=== PATIENT | male | born 2000 | race African-American/Black ===

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

== ENCOUNTER 2021-08-16 22:20 | Emergency (ER) | payer SELFPAY ==
[~2021-08-16] VITALS: Ht 177.8 cm; Wt 70.5 kg
[2021-08-16 23:27] VITALS: BP 138/102
--- NOTE | 2021-08-16 23:41 | PHYS DOC ---
Past Medical History Past Medical History: No Pertinent History Past Surgical History: No Surgical History Smoking Status: Current Every Day Smoker Alcohol Use: Rarely Drug Use: None General Adult EDM: Chief Complaint: BACK PAIN - NO INJURY HPI: HPI: Patient is a 21 year old male who presents with mid thoracic back pain, worse on the left than the right. Symptoms have been present for over 1 week. Pain is worse with movement and position. He denies abdominal pain, chest pain, dyspnea. He denies any direct trauma or injury. No radiation of pain. No numbness or tingling or motor weakness. He does report some urinary urgency. He denies penile discharge or dysuria. He denies scrotal pain, redness or swelling. He does have unprotected sex, has recently had a new sexual partner. He took one dose of ibuprofen a few days ago, he has not taken anything else for the pain since that time. No acute changes in any of his symptoms today, but his father recommended he come to the ER to be seen. Review of Systems: Review of Systems: Constitutional: Denies fever or chills. [] HENT: Denies nasal congestion or sore throat. [] Respiratory: Denies cough or shortness of breath. [] Cardiovascular: Denies chest pain or edema. [] GI: Denies abdominal pain, nausea, vomiting : Denies dysuria. He denies scrotal or testicle pain or redness. He denies penile discharge. He does report some mild urinary urgency. Denies gross hematuria Musculoskeletal: Left thoracic back pain. No joint pain or swelling. Integument: Denies rash. [] Neurologic: Denies headache, focal weakness or sensory changes. [] Psychiatric: Denies depression or anxiety. [] Heart Score: C/O Chest Pain: No Risk Factors: Risk Factors: DM, Current or recent (<one month) smoker, HTN, HLP, family history of CAD, obesity. Risk Scores: Score 0 - 3: 2.5% MACE over next 6 weeks - Discharge Home Score 4 - 6: 20.3% MACE over next 6 weeks - Admit for Clinical Observation Score 7 - 10: 72.7% MACE over next 6 weeks - Early Invasive Strategies Allergies: Allergies: Allergies Coded Allergies Type Severity Reaction Last Updated Verified No Known Drug Allergies 08/16/21 No Physical Exam: PE: Constitutional: Well developed, well nourished, no acute distress, non-toxic appearance. [] HENT: Normocephalic, atraumatic Neck: Normal range of motion, no tenderness, trachea is midline Cardiovascular:Heart rate regular rhythm, no edema, warm and well perfused Lungs & Thorax: Bilateral breath sounds clear to auscultation [] Abdomen: Abdomen soft, nondistended, nontender to palpation, no palpable pulsatile mass, no mass organomegaly, no CVA tenderness Skin: Warm, dry, no erythema, no rash. [] Back: Mild left-sided soft tissue mid thoracic tenderness. No midline tenderness or step-offs. No deformity. Mild palpable spasm is noted. Pain appears to be reproduced with palpation and movement. Full range of motion. Extremities: No tenderness, no cyanosis, no clubbing, ROM intact, no edema. No calf tenderness. Neurologic: He is awake, alert, ambulatory with a steady gait, 5 out of 5 motor strength all four extremities, no foot drop, sensation is grossly intact, speech is clear and fluent, no facial asymmetry Psychologic: Affect is anxious, though he is cooperative [] Current Patient Data: Vital Signs: Vital Signs Date Time Temp Pulse Resp B/P (MAP) Pulse Ox O2 Delivery O2 Flow Rate FiO2 08/16/21 23:27 97.8 60 20 138/102 (114) 98 Room Air 97.8 EKG: EKG: [] Radiology/Procedures: Radiology/Procedures: IMAGING REPORT Signed PATIENT: ARUN MARTINEZOUNT: [id number] : 2000 LOCATION: ER AGE: 21 SEX: M EXAM STATUS: DEP ER ORD. PHYSICIAN: MOUNA GARCIA DO REASON: pain PROCEDURE: THORACIC SPINE 3V EXAM: XR THORACIC SPINE 3VIEWS. HISTORY: Back pain. COMPARISON: None. FINDINGS: Thoracic alignment is maintained. No fractures are identified. Intervertebral disc heights are maintained. IMPRESSION: 1. No fracture or malalignment. Electronically signed by: Sharmila Carson MD (08/17/2021 5:53 AM) [facility] DICTATED and SIGNED BY: JOSÉ MIGUEL CARSON MD DATE: 08/17/21 [id number] Course & Med Decision Making: Course & Med Decision Making HisPertinent Labs and Imaging studies reviewed. (See chart for details) I have discussed the findings, differential diagnosis and plan of care with the patient. His back pain does appear to be musculoskeletal. His urinalysis does manifest evidence of some mild pyuria without bacteria. No urinary symptoms, unprotected intercourse and new sexual partner I have recommended empiric treatment for urethritis. He is given IM Rocephin and p.o. azithromycin. He understands that gonorrhea and Chlamydia cultures are pending. I have ordered these, via urine testing. He is given resources to follow-up with a primary care physician. Return precautions are given. Dragon Disclaimer: Nutmeg Disclaimer: This electronic medical record was generated, in whole or in part, using a voice recognition dictation system. Departure Departure Impression: Primary Impression: Thoracic back pain Additional Impression: Pyuria Disposition: HOME / SELF CARE / HOMELESS Condition: STABLE Referrals: NO PCP (PCP) Patient Instructions: Back Pain, Adult, Urethritis, Adult Additional Instructions: You have been given antibiotics to empirically treat you for gonorrhea and chlamydia. Your cultures are pending, they should return in the next 2 to 3 days. You'll be notified of any positive or abnormal results. Your x-rays are normal. You most likely have a muscle spasm. Please use the muscle spasm med ication as needed/as directed. You may also alternate ice and heat. You may use [id number] ibuprofen and Tylenol as well. Return for acute injury or trauma, chest pain, shortness of breath, abdominal pain, vomiting or for any other concerns. Please do not have sex at all until your symptoms are gone, and you make sure that any partners are treated, if your cultures returned positive. Follow-up with your primary care physician. Scripts Cyclobenzaprine Hcl (CYCLOBENZAPRINE HCL) 10 Mg Tablet 1 TAB PO BID for muscle spasm, #14 TAB Prov: MOUNA GARCIA DO 08/17/21 MOUNA GARCIA DO Aug 16, 2021 23:41
[2021-08-17] MEDS ORDERED: IBUPROFEN 200 MG TABLET. PO ONE
[2021-08-17 01:09] LABS: BILIRUBIN,URINE NEGATIVE (NEG); CLARITY,URINE CLEAR; COLOR,URINE YELLOW; NITRITE,URINE NEGATIVE (NEG); PH,URINE 5.5 (<5.0-8.0); PROTEIN,URINE 30 mg/dL (NEG-TRACE); UROBILINOGEN,URINE 0.2 mg/dL (0.2 mg/dL)
[2021-08-17 01:18] LABS: BACTERIA,URINE 0 /HPF (0-FEW); RBC,URINE 0 /HPF (0-2)
[2021-08-17] MEDS ORDERED: CYCL10TA19 PO (01:56)
[2021-08-17] MEDS ORDERED: AZITHROMYCIN 250 MG TABLET. PO ONE (02:00)
[2021-08-17] MEDS ORDERED: cefTRIAXone IM 500 MG VIAL. IM ONE (02:00)
--- NOTE | 2021-08-17 05:56 | RAD ---
EXAM: XR THORACIC SPINE 3VIEWS. HISTORY: Back pain. COMPARISON: None. FINDINGS: Thoracic alignment is maintained. No fractures are identified. Intervertebral disc heights are maintained. IMPRESSION: 1. No fracture or malalignment. Electronically signed by: Sharmila Carson MD (08/17/2021 5:53 AM) [facility]
== END 2021-08-17 02:30 | disposition home or self-care (01) ==
LOC: ER 22:20
DX: M54.6 Pain in thoracic spine (principal); R82.81 Pyuria; F17.200 Nicotine dependence, unspecified, uncomplicated
CPT/HCPCS: 72072; 81001; 87086; 87491; 87591; 96372; 99284; J0696

== ENCOUNTER 2021-09-13 09:55 | Emergency (ER) | payer SELFPAY ==
[~2021-09-13] VITALS: Ht 175.3 cm; Wt 75.0 kg
[~2021-09-13 09:55] MED LIST: CYCL10TA19 PO
[2021-09-13 10:06] VITALS: BP 118/70
[2021-09-13 10:37] LABS: BASO % 1 % (0-3); EOS % 0 % (0-3); HEMATOCRIT 46.3 % (39.0-53.0); HEMOGLOBIN 15.6 g/dL (13.0-17.5); LYMPH # 1.1 x10^3/uL (1.0-4.8); LYMPH % 23 % (24-48); MEAN CORPUSCULAR HEMOGLOBIN 27 pg (25-35); MEAN CORPUSCULAR HGB CONC 34 g/dL (31-37); MEAN CORPUSCULAR VOLUME 81 fL (79-100); MONO # 0.5 x10^3/uL (0.0-1.1); MONO % 10 % (0-9); NEUT % 66 % (31-73); PLATELET COUNT 245 x10^3/uL (140-400); RED BLOOD COUNT 5.73 x10^6/uL (4.30-5.70); RED CELL DISTRIBUTION WIDTH 13.7 % (11.5-14.5); WHITE BLOOD COUNT 4.6 x10^3/uL (4.0-11.0)
[2021-09-13 10:39] LABS: BILIRUBIN,URINE NEGATIVE (NEG); CLARITY,URINE CLEAR; COLOR,URINE AMBER; NITRITE,URINE NEGATIVE (NEG); PROTEIN,URINE NEGATIVE (NEG-TRACE); UROBILINOGEN,URINE 0.2 mg/dL (0.2 mg/dL)
[2021-09-13 10:45] LABS: BACTERIA,URINE 0 /HPF (0-FEW); RBC,URINE 0 /HPF (0-2); WBC,URINE OCC /HPF (0-4)
[2021-09-13] MEDS ORDERED: KETOROLAC 15 MG/ML VIAL. IVP ONE (10:45)
--- NOTE | 2021-09-13 10:51 | PHYS DOC ---
Past Medical History Past Medical History: No Pertinent History Past Surgical History: No Surgical History Smoking Status: Current Every Day Smoker Alcohol Use: Rarely Drug Use: None General Adult EDM: Chief Complaint: SEXUALLY TRANSMITTED DISEASE HPI: HPI: Patient is a 21 year old who presents with left-sided flank pain. Patient was seen here a month ago for same complaints. Patient was treated prophylactically for STDs. Patient states that when he got home he vomited and was concerned th at he did not retain any of the medication that was given. Patient denies penile discharge or burning with urination. Denies abdominal pain. Denies anything making pain better or worse. No known injury. Afebrile. patient denies all other health history. Review of Systems: Review of Systems: ROS At least 10 ROS systems have been reviewed and are negative except as documented in the HPI. General: Negative except as outlined in HPI above. Skin: Negative except as outlined in HPI above. HEENT: Negative except as outlined in HPI above. Neck: Negative except as outlined in HPI above. Respiratory: Negative except as outlined in HPI above.. Cardiovascular: Negative except as outlined in HPI above. Abdomen: Negative except as outlined in HPI above. : Negative except as outlined in HPI above. Back/MSK: Negative except as outlined in HPI above. Neuro: Negative except as outlined in HPI above. Psych: Negative except as outlined in HPI above. Heart Score: C/O Chest Pain: No Risk Factors: Risk Factors: DM, Current or recent (<one month) smoker, HTN, HLP, family history of CAD, obesity. Risk Scores: Score 0 - 3: 2.5% MACE over next 6 weeks - Discharge Home Score 4 - 6: 20.3% MACE over next 6 weeks - Admit for Clinical Observation Score 7 - 10: 72.7% MACE over next 6 weeks - Early Invasive Strategies Current Medications: Current Medications Medications (Trade) Dose Ordered Sig/[place] Start Time Stop Time Status Last Admin Dose Admin Ketorolac Tromethamine (Toradol 15mg Vial) 15 mg 1X ONCE 09/13/21 10:45 09/13/21 10:46 09/13/21 10:34 15 MG Allergies: Allergies: Allergies Coded Allergies Type Severity Reaction Last Updated Verified No Known Drug Allergies 09/13/21 No Physical Exam: PE: Constitutional: Well developed, well nourished, no acute distress, non-toxic appearance. [] HENT: Normocephalic, atraumatic, bilateral external ears normal, oropharynx una st, no oral exudates, nose normal. [] Eyes: PERRLA, EOMI, conjunctiva normal, no discharge. [] Neck: Normal range of motion, no tenderness, supple, no stridor. [] Cardiovascular:Heart rate regular rhythm, no murmur [] Lungs & Thorax: Bilateral breath sounds clear to auscultation [] Abdomen: Bowel sounds normal, soft, no tenderness, no masses, no pulsatile masses. [] Skin: Warm, dry, no erythema, no rash. [] Back: No tenderness, left-sided CVA tenderness. [] Extremities: No tenderness, no cyanosis, no clubbing, ROM intact, no edema. [] Neurologic: Alert and oriented X 3, normal motor function, normal sensory function, no focal deficits noted. [] Psychologic: Affect normal, judgement normal, mood normal. [] Current Patient Data: Labs: Laboratory Tests Test 09/13/21 10:30 White Blood Count 4.6 x10^3/uL (4.0-11.0) Red Blood Count 5.73 x10^6/uL (4.30-5.70) H Hemoglobin 15.6 g/dL (13.0-17.5) Hematocrit 46.3 % (39.0-53.0) Mean Corpuscular Volume 81 fL (79-100) Mean Corpuscular Hemoglobin 27 pg (25-35) Mean Corpuscular Hemoglobin Concent 34 g/dL (31-37) Red Cell Distribution Width 13.7 % (11.5-14.5) Platelet Count 245 x10^3/uL (140-400) Neutrophils (%) (Auto) 66 % (31-73) Lymphocytes (%) (Auto) 23 % (24-48) L Monocytes (%) (Auto) 10 % (0-9) H Eosinophils (%) (Auto) 0 % (0-3) Basophils (%) (Auto) 1 % (0-3) Neutrophils # (Auto) 3.0 x10^3/uL (1.8-7.7) Lymphocytes # (Auto) 1.1 x10^3/uL (1.0-4.8) Monocytes # (Auto) 0.5 x10^3/uL (0.0-1.1) Eosinophils # (Auto) 0.0 x10^3/uL (0.0-0.7) Basophils # (Auto) 0.0 x10^3/uL (0.0-0.2) Urine Collection Type Unknown Urine Color Francy Urine Clarity Clear Urine pH 6.0 (<5.0-8.0) Urine Specific [place] 1.020 (1.000-1.030) Urine Protein Negative mg/dL (NEG-TRACE) Urine Glucose (UA) Negative mg/dL (NEG) Urine Ketones (Stick) 40 mg/dL (NEG) Urine Blood Negative (NEG) Urine Nitrite Negative (NEG) Urine Bilirubin Negative (NEG) Urine Urobilinogen Dipstick 0.2 mg/dL (0.2 mg/dL) Urine Leukocyte Esterase Negative (NEG) Urine RBC 0 /HPF (0-2) Urine WBC Occ /HPF (0-4) Urine Bacteria 0 /HPF (0-FEW) Urine Mucus Mod /LPF Laboratory Tests 09/13/21 10:30 Vital Signs: Vital Signs Date Time Temp Pulse Resp B/P (MAP) Pulse Ox O2 Delivery O2 Flow Rate FiO2 09/13/21 10:06 98.2 60 17 118/70 (86) 95 Room Air 98.2 EKG: EKG: [] Radiology/Procedures: Radiology/Procedures: []INDICATION: Reason: left sided flank pain / Spl. Instructions: omni 300 75ml / History: COMPARISON: None. TECHNIQUE: Axial CT images were obtained through the abdomen and pelvis with intravenous contrast. One or more of the following individualized dose reduction techniques were utilized for this examination: 1. Automated exposure control; 2. Adjustment of the mA and/or kV according to patient size; 3. Use of iterative reconstruction technique. FINDINGS: Vascular: No abdominal aortic aneurysm. Hepatobiliary: No intrahepatic biliary duct dilation. Pancreas: No peripancreatic edema. Spleen: Spleen unremarkable. Renal/Bladder: No hydronephrosis. There is some regions of low density along the renal cortex bilaterally. For example the lower pole the right kidney this measures up to about 2 cm. No hydronephrosis. Urinary bladder is partially distended. Gastrointestinal: Small free fluid in the pelvis. The appendix is only partially seen secondary to unopacified loops of bowel in the right lower quadrant as well as very little intra-abdominal fat but does not appear dilated in visualized portion. No dilated loops of bowel to suggest obstruction. IMPRESSION: * At the renal cortex bilaterally there is a subtle region of low density. Would correlate with symptoms and laboratory markers to ensure there is not a pathologic cause such as mild edema from pyelonephritis. If the patient does not have symptoms of urinary tract infection it is possible that this is just sec ondary to heterogenous enhancement. * No evidence of bowel obstruction. Electronically signed by: Vineet Calzada MD (09/13/2021 11:33 AM) [facility] [id number] Course & Med Decision Making: Course & Med Decision Making Pertinent Labs and Imaging studies reviewed. (See chart for details) [] 21-year-old male who presents with left-sided flank pain. Patient was seen 1 month ago for same symptoms. Patient states that symptoms have not resolved. Denies penile discharge or dysuria. Patient was treated prophylactically for STDs 1 month ago while in the ER. Patient urine is negative for blood, 510 WBCs. UA came back negative for gonorrhea and chlamydia. Patient had a thoracic x-ray at that time which was unremarkable. Patient denies any known trauma. Patient states he has been taking Azo at home to help with back pain. Patient's pain was treated in the emergency room with IV Toradol. UA obtained to rule out infection. CT of abdomen and pelvis was ordered to rule out acute abnormality. Eric Disclaimer: Eric Disclaimer: This electronic medical record was generated, in whole or in part, using a voice recognition dictation system. Departure Departure Impression: Primary Impression: Thoracic back pain Qualified Codes: M54.6 - Pain in thoracic spine Disposition: HOME / SELF CARE / HOMELESS Condition: STABLE Referrals: NO PCP (PCP) Patient Instructions: Back Pain, Adult Additional Instructions: You are seen in the emergency room for left-sided back pain. CT of your abdomen and pelvis was unremarkable. All of your labs and urine were also unremarkable. Make sure you are taking ibuprofen at home for pain. You can take 600 mg every 8 hours for discomfort. These follow-up with your PCP if pain does not resolve. Return to the emergency room for worsening symptoms or concerns. EMERGENCY DEPARTMENT GENERAL DISCHARGE INSTRUCTIONS Thank you for coming to [facility] Emergency Department (ED) today and trusting us with you care. We trust that you had a positive experience in our Emergency Department. If you wish to speak to the department management, you may call the Director at [phone]. YOUR FOLLOW UP INSTRUCTIONS ARE FOLLOWS: 1. Do you have a private Doctor? If you do not have a private doctor, please ask for a resource list of physicians or clinics that may be able to assist you with follow up care. 2. The Emergency Physicain has interpreted your x-rays. The X-Ray specialist will also review them. If there is a change in the findings, you will be notified in 48 hours when at all possible. 3. A lab test or culture has been done, your results will be reviewed and you will be notified if you need a change in treatment. ADDITIONAL INSTRUCTIONS AND INFORMATION: 1. Your care today has been supervised by a physician who is specially trained in emergency care. Many problems require more than one evaluation for a complete diagnosis and treatment. We recommend that you schedule your follow up appointment as recommended to ensure complete treatment of you illness or injury. If you are unable to obtain follow up care and continue to have a problem, or if your condition worsens, we recommend that you return to the ED. 2. We are not able to safely determine your condition over the phone nor are we able to give sound medical advice over the phone. For these safety reasons, if you call for medical advice we will ask you to come to the ED for further evaluation. 3. If you have any questions regarding these discharge instructions please call the ED at [phone]. SAFETY INFORMATION: In the interest of safety, wellness, and injury prevention; we encourage you to wear your sealbelt, if you smoke; quite smoking, and we encourage family to use a protective helmet for bicycling and other sporting events that present an increased risk for head injury. IF YOUR SYMPTOMS WORSEN OR NEW SYMPTOMS DEVELOP, OR YOU HAVE CONCERNS ABOUT YOUR CONDITION; OR IF YOUR CONDITION WORSENS WHILE YOU ARE WAITING FOR YOUR FOLLOW UP APPOINTMENT; EITHER CONTACT YOUR PRIMARY CARE DOCTOR, THE PHYSICIAN WHOSE NAME AND NUMBER YOU WERE GIVEN, OR RETURN TO THE ED IMMEDIATELY. FLORES ARIAS APRN Sep 13, 2021 10:51
[2021-09-13 11:03] LABS: CALCIUM 9.1 mg/dL (8.5-10.1); CREATININE 1.1 mg/dL (0.7-1.3); GFR 103.3; POTASSIUM 3.5 mmol/L (3.5-5.1)
[2021-09-13] MEDS ORDERED: IOHEXOL 300 MG/ML 100ML VIAL. IV ONE (11:15)
--- NOTE | 2021-09-13 11:35 | RAD ---
INDICATION: Reason: left sided flank pain / Spl. Instructions: omni 300 75ml / History: COMPARISON: None. TECHNIQUE: Axial CT images were obtained through the abdomen and pelvis with intravenous contrast. One or more of the following individualized dose reduction techniques were utilized for this examinat ion: 1. Automated exposure control; 2. Adjustment of the mA and/or kV according to patient size; 3 . Use of iterative reconstruction technique. FINDINGS: Vascular: No abdominal aortic aneurysm. Hepatobiliary: No intrahepatic biliary duct dilation. Pancreas: No peripancreatic edema. Spleen: Spleen unremarkable. Renal/Bladder: No hydronephrosis. There is some regions of low density along the renal cortex bilater ally. For example the lower pole the right kidney this measures up to about 2 cm. No hydronephrosis. Urinary bladder is partially distended. Gastrointestinal: Small free fluid in the pelvis. The appendix is only partially seen secondary to un opacified loops of bowel in the right lower quadrant as well as very little intra-abdominal fat but d oes not appear dilated in visualized portion. No dilated loops of bowel to suggest obstruction. IMPRESSION: * At the renal cortex bilaterally there is a subtle region of low density. Would correlate with sym ptoms and laboratory markers to ensure there is not a pathologic cause such as mild edema from pyelon ephritis. If the patient does not have symptoms of urinary tract infection it is possible that this i s just secondary to heterogenous enhancement. * No evidence of bowel obstruction. Electronically signed by: Vineet Calzada MD (09/13/2021 11:33 AM) [id number]
== END 2021-09-13 12:04 | disposition home or self-care (01) ==
LOC: ER 09:55
DX: M54.6 Pain in thoracic spine (principal); F17.200 Nicotine dependence, unspecified, uncomplicated
CPT/HCPCS: 36415; 74177; 80048; 81001; 85025; 96374; 99285; J1885; Q9967

== ENCOUNTER 2021-10-08 12:52 | Emergency (ER) | payer SELFPAY ==
[~2021-10-08] VITALS: Ht 177.8 cm; Wt 62.6 kg
--- NOTE | 2021-10-08 14:05 | PHYS DOC ---
Past Medical History Past Medical History: No Pertinent History Additional Past Medical Histor: STD Past Surgical History: No Surgical History Smoking Status: Former Smoker Additional Information: QUIT 3 WKS AGO Alcohol Use: None Drug Use: None Social History Narrative: QUIT [facility] 3 WKS AGO General Adult EDM: Chief Complaint: ABDOMINAL PAIN HPI: HPI: Patient is a 21 year old male with no significant medical problems presenting today complaining of 8 out of 10 pelvic pain, symptoms began this morning, he states symptoms occur when he twists in certain positions. Denies anything specifically relieving the symptoms, he states the pain is intermittent and sharp. He states a month ago he developed left flank pain, he states he was seen in the ED and had a big work-up including CT, x-rays and labs and was treated for chlamydia. He states he continues to have the left flank pain. Denies any nausea, vomiting, urgency, frequency, dysuria, hematuria. Currently refusing labs or any IVs. Review of Systems: Review of Systems: Constitutional: Denies fever or chills. [] Eyes: Denies change in visual acuity. [] HENT: Denies nasal congestion or sore throat. [] Respiratory: Denies cough or shortness of breath. [] Cardiovascular: Denies chest pain or edema. [] GI: Reports pelvic pain, denies nausea, vomiting, bloody stools or diarrhea. [] : Reports left flank pain, denies dysuria. [] Musculoskeletal: Denies back pain or joint pain. [] Integument: Denies rash. [] Neurologic: Denies headache, focal weakness or sensory changes. [] Psychiatric: Denies depression or anxiety. [] Heart Score: C/O Chest Pain: N/A Risk Factors: Risk Factors: DM, Current or recent (<one month) smoker, HTN, HLP, family history of CAD, obesity. Risk Scores: Score 0 - 3: 2.5% MACE over next 6 weeks - Discharge Home Score 4 - 6: 20.3% MACE over next 6 weeks - Admit for Clinical Observation Score 7 - 10: 72.7% MACE over next 6 weeks - Early Invasive Strategies Allergies: Allergies: Allergies Coded Allergies Type Severity Reaction Last Updated Verified No Known Drug Allergies 10/08/21 No Physical Exam: PE: Constitutional: Well developed, well nourished, no acute distress, non-toxic appearance. [] HENT: Normocephalic, atraumatic, bilateral external ears normal, oropharynx moist, no oral exudates, nose normal. [] Eyes: PERRLA, EOMI, conjunctiva normal, no discharge. [] Neck: Normal range of motion, no tenderness, supple, no stridor. [] Cardiovascular:Heart rate regular rhythm, no murmur [] Lungs & Thorax: Bilateral breath sounds clear to auscultation [] Abdomen: Bowel sounds normal, soft, no tenderness, no masses, no pulsatile masses. [] Skin: Warm, dry, no erythema, no rash. [] Back: No tenderness, no CVA tenderness. [] Extremities: No tenderness, no cyanosis, no clubbing, ROM intact, no edema. [] Neurologic: Alert and oriented X 3, normal motor function, normal sensory function, no focal deficits noted. [] Psychologic: Affect normal, judgement normal, mood normal. [] Current Patient Data: Vital Signs: Vital Signs Date Time Temp Pulse Resp B/P (MAP) Pulse Ox O2 Delivery O2 Flow Rate FiO2 10/08/21 13:39 78 18 136/70 (92) 100 Room Air 10/08/21 13:05 98.7 98.7 EKG: EKG: [] Radiology/Procedures: Radiology/Procedures: []PROCEDURE: CT ABDOMEN PELVIS WO CONTRAST INDICATION: Reason: flank pain/ pelvic pain / Spl. Instructions: / History: COMPARISON: September 13, 2021 TECHNIQUE: Axial CT images were obtained through the abdomen and pelvis without intravenous contrast. One or more of the following individualized dose reduction techniques were utilized for this examination: 1. Automated exposure control; 2. Adjustment of the mA and/or kV according to patient size; 3. Use of iterative reconstruction technique. FINDINGS: Vascular: No abdominal aortic aneurysm. Hepatobiliary: Liver is prominent in size. Pancreas: Limited evaluation secondary to lack of contrast. Spleen: Spleen unremarkable. Renal/Bladder: No hydronephrosis. Urinary bladder has minimal urine within it at time of exam. Gastrointestinal: The colon is not very distended but there is some prominence of the wall portion of the left side of the colon. This is also seen extending into the rectosigmoid region. There are some prominent lymph nodes seen within the mesentery including within the right side of the pelvis measuring up to about 9 mm short axis. The appendix is partially seen and does not appear grossly inflamed in the visualized portion. Portions are obscured secondary to adjacent unopacified loops of small bowel and lack of contrast. IMPRESSION: * The colon is not very distended but there is some prominence of the wall of the left side of the colon. Correlate for symptoms since colitis could have this appearance if the patient has appropriate symptoms. If the patient does not have symptoms of colitis this could be from a region of contraction. * No hydronephrosis. Electronically signed by: Steffen Calzada MD (10/08/2021 2:13 PM) [id number] DICTATED and SIGNED BY: STEFFEN CALZADA MD DATE: 10/08/21 [id number] 0 Course & Med Decision Making: Course & Med Decision Making Pertinent Labs and Imaging studies reviewed. (See chart for details) This is a 21-year-old male patient presented to the ED today with pelvic pain that began today, also complaining of left flank pain that began a month ago. Reports being worked up for the left flank pain including labs and CT a month ago and there was no acute findings. CBC CMP with no acute findings, UA negative for infection. CT of the abdomen and pelvis noted for possible colitis. Patient does not have any diarrhea, vomiting. He was discharged to home. Follow-up with PCP in 1 week. Eric Disclaimer: Eric Disclaimer: This electronic medical record was generated, in whole or in part, using a voice recognition dictation system. Departure Departure Impression: Primary Impression: Abdominal pain Qualified Codes: R10.33 - Periumbilical pain Additional Impression: Left flank pain Disposition: HOME / SELF CARE / HOMELESS Condition: STABLE Referrals: NO PCP (PCP) JASKARAN RIOS MD follow up in one week Patient Instructions: Abdominal Pain (Nonspecific) Additional Instructions: You were evaluated in the emergency room, we sent medicine to the pharmacy to help you with your symptoms. Take it as prescribed. Follow-up with your own doctor in 1 to 2 weeks. Come back to the ED at any point symptoms worsen Scripts Dicyclomine Hcl (DICYCLOMINE HCL) 20 Mg Tablet 1 TAB PO TID, #30 TAB 1 Refill Prov: SHARI CARDENAS Xu [employer] 10/08/21 Hydrocodone Bit/Acetaminophen (HYDROCODONE-APAP 5-325 ) 1 Tab Tablet 1 TAB PO PRN Q6HRS PRN for PAIN, #10 TAB 0 Refills Prov: SHARI CARDENAS APRN 10/08/21 SHARI CARDENAS APRN Oct 08, 2021 14:05
--- NOTE | 2021-10-08 14:16 | RAD ---
INDICATION: Reason: flank pain/ pelvic pain / Spl. Instructions: / History: COMPARISON: September 13, 2021 TECHNIQUE: Axial CT images were obtained through the abdomen and pelvis without intravenous contrast. One or more of the following individualized dose reduction techniques were utilized for this examinat ion: 1. Automated exposure control; 2. Adjustment of the mA and/or kV according to patient size; 3 . Use of iterative reconstruction technique. FINDINGS: Vascular: No abdominal aortic aneurysm. Hepatobiliary: Liver is prominent in size. Pancreas: Limited evaluation secondary to lack of contrast. Spleen: Spleen unremarkable. Renal/Bladder: No hydronephrosis. Urinary bladder has minimal urine within it at time of exam. Gastrointestinal: The colon is not very distended but there is some prominence of the wall portion of the left side of the colon. This is also seen extending into the rectosigmoid region. There are some prominent lymph nodes seen within the mesentery including within the right side of the pelvis measur ing up to about 9 mm short axis. The appendix is partially seen and does not appear grossly inflamed in the visualized portion. Portions are obscured secondary to adjacent unopacified loops of small bow el and lack of contrast. IMPRESSION: * The colon is not very distended but there is some prominence of the wall of the left side of the colon. Correlate for symptoms since colitis could have this appearance if the patient has appropriate symptoms. If the patient does not have symptoms of colitis this could be from a region of contractio n. * No hydronephrosis. Electronically signed by: Vineet Calzada MD (10/08/2021 2:13 PM) [id number]
[2021-10-08 14:37] LABS: BILIRUBIN,URINE NEGATIVE (NEG); CLARITY,URINE CLOUDY; COLOR,URINE YELLOW; NITRITE,URINE NEGATIVE (NEG); PROTEIN,URINE NEGATIVE (NEG-TRACE); UROBILINOGEN,URINE 0.2 mg/dL (0.2 mg/dL)
[2021-10-08 14:41] LABS: BASO # 0.1 x10^3/uL (0.0-0.2); BASO % 1 % (0-3); EOS # 0.1 x10^3/uL (0.0-0.7); EOS % 1 % (0-3); LYMPH # 2.4 x10^3/uL (1.0-4.8); LYMPH % 31 % (24-48); MEAN CORPUSCULAR HEMOGLOBIN 27 pg (25-35); MEAN CORPUSCULAR HGB CONC 33 g/dL (31-37); MEAN CORPUSCULAR VOLUME 81 fL (79-100); MONO # 0.5 x10^3/uL (0.0-1.1); MONO % 7 % (0-9); NEUT # 4.6 x10^3/uL (1.8-7.7); NEUT % 60 % (31-73); PLATELET COUNT 271 x10^3/uL (140-400); RED BLOOD COUNT 5.95 x10^6/uL (4.30-5.70); RED CELL DISTRIBUTION WIDTH 14.1 % (11.5-14.5); WHITE BLOOD COUNT 7.6 x10^3/uL (4.0-11.0)
[2021-10-08 14:44] LABS: BARBITURATES NEG (NEG); BENZODIAZEPINES NEG (NEG); CANNABINOIDS POS (NEG); COCAINE NEG (NEG); METHADONE NEG (NEG); OPIATES NEG (NEG); PHENCYCLIDINE NEG (NEG)
[2021-10-08 14:45] LABS: AMPHETAMINE/METHAMPHETAMINE NEG (NEG)
[2021-10-08 14:51] LABS: AMORPHOUS SEDIMENT,UR PRESENT /HPF; HYALINE CASTS, URINE OCCASIONAL /HPF
[2021-10-08 14:53] LABS: BACTERIA,URINE 0 /HPF (0-FEW); WBC,URINE OCC /HPF (0-4)
[2021-10-08 15:00] LABS: CALCIUM 8.3 mg/dL (8.5-10.1); CREATININE 1.2 mg/dL (0.7-1.3); GFR 93.4; POTASSIUM 3.4 mmol/L (3.5-5.1)
[2021-10-08 15:09] LABS: ALBUMIN 4.1 g/dL (3.4-5.0); ALBUMIN/GLOBULIN RATIO 1.1 (1.0-1.7); TOTAL BILIRUBIN 0.5 mg/dL (0.2-1.0); TOTAL PROTEIN 7.8 g/dL (6.4-8.2)
[2021-10-08] MEDS ORDERED: HYDR-2761 PO (15:47)
[2021-10-08] MEDS ORDERED: DICY20TA PO (15:47)
[2021-10-08 16:10] VITALS: BP 133/58
== END 2021-10-08 16:18 | disposition home or self-care (01) ==
LOC: ER 12:52
DX: R10.33 Periumbilical pain (principal); Z87.891 Personal history of nicotine dependence
CPT/HCPCS: 36415; 74176; 80053; 80307; 81001; 83690; 85025; 99285-25

== ENCOUNTER 2021-11-28 15:22 | Emergency (ER) | payer SELFPAY ==
[~2021-11-28] VITALS: Ht 180.3 cm; Wt 67.9 kg
[~2021-11-28 15:22] MED LIST changes: +DICY20TA PO; +HYDR-2761 PO
[2021-11-28 15:30] VITALS: BP 154/75
--- NOTE | 2021-11-28 16:08 | RAD ---
Exam: Left ribs with PA chest INDICATION: Left lower rib discomfort TECHNIQUE: Frontal view of the chest with frontal and oblique views of the left ribs Comparisons: None FINDINGS: The cardiomediastinal silhouette and pulmonary vessels are within normal limits. The lung and pleural spaces are clear. No displaced rib fractures. IMPRESSION: 1. No acute cardiopulmonary process. 2. No displaced rib fractures identified. Electronically signed by: Helene Olivas MD (11/28/2021 4:05 PM) CT
--- NOTE | 2021-11-28 16:12 | PHYS DOC ---
Past Medical History Past Medical History: No Pertinent History Additional Past Medical Histor: STD Past Surgical History: No Surgical History Smoking Status: Former Smoker Alcohol Use: None Drug Use: None Adult General Chief Complaint Chief Complaint: RIB PAIN HPI HPI Patient is a 21 year old male presenting to the emergency department for evaluation of an odd sensation to his left lower rib cage that he says has been going on for at least 1 month. He says he feels that his left ribs are pushing out more than his right side and that gives him an odd sensation especially while he is at work. Patient says that it does not make him feel short of breath and he denies any pain fevers chills cough nausea vomiting or other systemic symptoms. He denies having any medical problems or taking medications on a regular basis. He is in no acute distress with normal vital signs. Review of Systems Review of Systems Constitutional: Denies fever or chills [] Eyes: Denies change in visual acuity, redness, or eye pain [] HENT: Denies nasal congestion or sore throat [] Respiratory: Denies cough or shortness of breath [] Cardiovascular: No additional information not addressed in HPI [] GI: Denies abdominal pain, nausea, vomiting, bloody stools or diarrhea [] : Denies dysuria or hematuria [] Musculoskeletal: Denies back pain or joint pain [] Integument: Denies rash or skin lesions [] Neurologic: Denies headache, focal weakness or sensory changes [] All other systems were reviewed and found to be within normal limits, except as documented in this note. Allergies Allergies Allergies Coded Allergies Type Severity Reaction Last Updated Verified No Known Drug Allergies 10/08/21 No Physical Exam Physical Exam Constitutional: Well developed, well nourished, no acute distress, non-toxic appearance. [] HENT: Normocephalic, atraumatic, bilateral external ears normal, oropharynx moist, no oral exudates, nose normal. [] Eyes: PERRLA, EOMI, conjunctiva normal, no discharge. [] Neck: Normal range of motion, no tenderness, supple, no stridor. [] Cardiovascular:Heart rate regular rhythm, no murmur [] Lungs & Thorax: Bilateral breath sounds clear to auscultation [] Abdomen: Bowel sounds normal, soft, no tenderness, no masses, no pulsatile masses. [] Skin: Warm, dry, no erythema, no rash. [] Back: No tenderness, no CVA tenderness. [] Extremities: No tenderness, no cyanosis, no clubbing, ROM intact, no edema. [] Neurologic: Alert and oriented X 3, normal motor function, normal sensory function, no focal deficits noted. [] Current Patient Data Vital Signs Vital Signs Date Time Temp Pulse Resp B/P (MAP) Pulse Ox O2 Delivery O2 Flow Rate FiO2 11/28/21 15:30 98.3 71 20 154/75 (101) 97 Room Air 98.3 EKG EKG [] Radiology/Procedures Radiology/Procedures [] Course & Med Decision Making Course & Med Decision Making Patient has no organomegaly on exam and there is no pain to palpation of the ribs. I told him I suspect this could be his stomach getting larger and smaller with his diet pushing out on his rib cage where his spleen could be getting larger and smaller as well. Patient is in no distress and has normal vital signs and has a benign physical exam and his x-rays are negative for acute process. I told him given he appears well and is asymptomatic at this time that he should follow with a primary care provider within 1 week for recheck as he may want a do further testing such as ultrasound or CT of his abdomen. Patient aware and agreeable with plan for discharge and verbalized understanding the need for short-term follow-up and strict ED return precautions discussed worsening pain shortness of breath or other general concerns. Patient discharged in stable condition. Dragon Disclaimer Dragon Disclaimer This electronic medical record was generated, in whole or in part, using a voice recognition dictation system. Departure Departure Impression: Primary Impression: Rib pain on left side Disposition: HOME / SELF CARE / HOMELESS Condition: STABLE Referrals: NO PCP (PCP) Patient Instructions: Rib Contusion PILY LOPEZ DO Nov 28, 2021 16:12
== END 2021-11-28 16:20 | disposition home or self-care (01) ==
LOC: ER 15:22
DX: R07.81 Pleurodynia (principal); Z87.891 Personal history of nicotine dependence
CPT/HCPCS: 71101; 99283